=== PATIENT | female | born 1945 | race Caucasian/White ===

== ENCOUNTER 2021-02-17 07:23 | Day surgery (SDC) | payer OTHER ==
[2021-02-17] MEDS ORDERED: Propofol 200 MG/20 ML SDV ONE (08:00)
[2021-02-17] MEDS ORDERED: fentaNYL 100 MCG/2 ML SDV ONE (08:00)
[2021-02-17] MEDS ORDERED: Sodium Chloride 0.9% 1,000 ML IV SCH (08:15)
--- NOTE | 2021-02-17 11:49 | OR ---
DATE OF PROCEDURE: 02/17/2021 SURGEON: Jorge L Torres MD PROCEDURE: Esophagogastroduodenoscopy. FINDINGS: Mild inflammation with a small salmon-colored tongue-like protrusion of approximately 1 cm at the GE junction (biopsied using cold biopsy forceps). COMPLICATIONS: None. CRAFT COORDINATOR: None. PREOPERATIVE DIAGNOSIS: Dysphagia. POSTOPERATIVE DIAGNOSIS: Dysphagia. RISKS: Risks, benefits, alternatives, and limitations including, but not limited to, infection, bleeding, perforation, false positives and false negatives were explained to the patient and they wished to proceed. PROCEDURE IN DETAIL: Patient was placed in left lateral decubitus position. The EGD scope was introduced and advanced atraumatically to the second part of duodenum. No evidence of duodenitis or ulceration. Within the stomach, there was no evidence of gastritis or ulceration. No hiatal hernia. At the GE junction, the patient had a flat less than 1 cm salmon-colored area extending from the GE junction, which was biopsied multiple times using cold biopsy forceps. The air was removed from the stomach. The esophagus was inspected, without abnormality. The patient tolerated the procedure well. The patient will be sent for a CT scan of chest, abdomen, pelvis, and speech therapy consult. Jorge L Torres MD /[id number]
== END 2021-02-17 11:10 | disposition home or self-care (01) ==
LOC: JP.SDS 07:23
PROVIDERS: ATTEND Surgery
DX: K20.90 Esophagitis, unspecified without bleeding (principal); K22.8 Other specified diseases of esophagus; R13.10 Dysphagia, unspecified; J45.909 Unspecified asthma, uncomplicated; Z88.8 Allergy status to other drugs, medicaments and biological substances
CPT/HCPCS: 43239; J2704; J3010; J7030; 88305